=== PATIENT | female | born 1985 | race African-American/Black ===

== ENCOUNTER 2017-05-06 18:35 | Emergency (ER) | payer BC, OTHER ==
[~2017-05-06] VITALS: Ht 160 cm; Wt 65.0 kg
[~2017-05-06 18:35] MED LIST: ALBU25PO2; FERR325T23 PO; IBUP-779 PO; MULT-1146 PO
[2017-05-07 00:48] LABS: CLARITY URINE CLOUDY (CLEAR); COLOR URINE YELLOW (YELLOW); KETONES URINE NEGATIVE (NEGATIVE); LEUKOCYTE ESTERASE URINE 2+ (NEGATIVE); NITRITE URINE NEGATIVE (NEGATIVE); OCCULT BLOOD URINE 3+ (NEGATIVE); PH URINE 5.5 (4.5-8.0); PROTEIN URINE TRACE (NEGATIVE); SPECIFIC GRAVITY URINE 1.025 (1.005-1.030)
[2017-05-07 01:26] LABS: BASOPHILS % 0.8 % (0.0-2.0); EOSINOPHILS % 5.5 % (0.0-5.0); HEMATOCRIT. 35.7 % (36.0-48.0); HEMOGLOBIN. 12.1 g/dL (12.0-16.0); LYMPHOCYTES % 37.7 % (20.0-50.0); MEAN CORPUSCULAR HEMOGLOBIN 31.2 pg (28.0-32.0); MEAN CORPUSCULAR VOLUME 92.2 fL (81.0-99.0); MEAN PLATELET VOLUME 7.5 fl (7.4-10.4); PLATELET 258 x1000/uL (130-400); RED BLOOD CELL COUNT 3.87 mill/uL (4.2-5.4); RED CELL DISTRIBUTION WIDTH 12.9 % (11.6-14.6)
[2017-05-07 01:29] LABS: CHLORIDE 108 mEq/L (98-107)
[2017-05-07 05:20] VITALS: BP 103/67
== END 2017-05-07 05:27 | disposition home or self-care (01) ==
LOC: ER 18:35
DX: N12 Tubulo-interstitial nephritis, not specified as acute or chronic (principal); Z88.8 Allergy status to other drugs, medicaments and biological substances; Z88.6 Allergy status to analgesic agent
CPT/HCPCS: 36415; 76770; 80053; 81001; 81025; 83690; 85025; 87086; 99285; Z7610